=== PATIENT | male | born 1985 | race Caucasian/White ===

== ENCOUNTER 2020-12-06 14:52 | Emergency (ER) | payer SELFPAY ==
[2020-12-06 15:12] VITALS: BP 136/90; PULSE 90; TEMP 99.1; BMI 31.8
== END 2020-12-06 17:03 | disposition home or self-care (01) ==
LOC: FER 14:52
DX: S01.511A Laceration without foreign body of lip, initial encounter (principal)
CPT/HCPCS: 70450-TC; 70486-TC; 99284-25

== ENCOUNTER 2021-03-21 10:15 | Emergency (ER) | payer OTHER ==
[2021-03-21 10:30] VITALS: BP 135/99; PULSE 104; TEMP 99.2; BMI 30.5
[2021-03-21] MEDS ORDERED: IBUPROFEN 400 MG TABLET (FP) PO ONE ×2 (10:30→10:34)
== END 2021-03-21 10:54 | disposition home or self-care (01) ==
LOC: FER 10:15
DX: K08.89 Other specified disorders of teeth and supporting structures (principal)
CPT/HCPCS: 99283-25

== ENCOUNTER 2021-03-22 19:08 | Emergency (ER) | payer OTHER ==
[2021-03-22 19:19] VITALS: BP 158/88; PULSE 98; TEMP 98.5; BMI 29.7
[2021-03-22] MEDS ORDERED: KETOROLAC TROMETHAMINE 30 MG/1 ML VIAL IM ONE (19:26)
[2021-03-22] MEDS ORDERED: LIDOCAINE VISCOUS 2% ORAL/TOP 20 ML UNIT-DOSE CUP MM ONE (19:28)
[2021-03-22] MEDS ORDERED: KETOROLAC TROMETHAMINE 30 MG/1 ML VIAL ONE (19:48)
[2021-03-22] MEDS ORDERED: LIDOCAINE VISCOUS 2% ORAL/TOP 20 ML UNIT-DOSE CUP ONE (19:50)
== END 2021-03-22 21:11 | disposition home or self-care (01) ==
LOC: JERFT 19:08 → JER 19:08 → JERFT 21:11
PROC: 3E0233Z Introduction of Anti-inflammatory into Muscle, Percutaneous Approach (ICD-10-PCS; principal; 2021-03-22)
DX: K08.89 Other specified disorders of teeth and supporting structures (principal)
CPT/HCPCS: 99284-25

== ENCOUNTER 2022-05-26 16:55 | Emergency (ER) | payer OTHER ==
[2022-05-26 17:15] VITALS: BP 119/71; PULSE 80; TEMP 98; BMI 30.2
[2022-05-26] MEDS ORDERED: KETOROLAC TROMETHAMINE 30 MG/1 ML VIAL IM ONE (19:27)
[2022-05-26] MEDS ORDERED: KETOROLAC TROMETHAMINE 30 MG/1 ML VIAL ONE (19:37)
== END 2022-05-26 23:38 | disposition home or self-care (01) ==
LOC: JERFT 16:55
PROC: 3E023GC Introduction of Other Therapeutic Substance into Muscle, Percutaneous Approach (ICD-10-PCS; principal; 2022-05-26)
DX: S80.12XA Contusion of left lower leg, initial encounter (principal); X50.0XXA Overexertion from strenuous movement or load, initial encounter
CPT/HCPCS: 93971-TC; 99284-25

== ENCOUNTER 2022-06-18 19:47 | Emergency (ER) | payer OTHER ==
[2022-06-18 20:00] VITALS: BP 154/97; PULSE 98; RESP 19; TEMP 98.6; BMI 29.7
[2022-06-18] MEDS ORDERED: KETOROLAC TROMETHAMINE 30 MG/1 ML VIAL IM ONE (21:36)
[2022-06-18] MEDS ORDERED: KETOROLAC TROMETHAMINE 30 MG/1 ML VIAL ONE (21:42)
== END 2022-06-18 21:48 | disposition home or self-care (01) ==
LOC: JERFT 19:47
PROC: 3E0233Z Introduction of Anti-inflammatory into Muscle, Percutaneous Approach (ICD-10-PCS; principal; 2022-06-18)
DX: M79.605 Pain in left leg (principal)
CPT/HCPCS: 99284-25